=== PATIENT | male | born 1965 | race Caucasian/White ===

== ENCOUNTER 2016-10-24 14:16 | Outpatient (CLI) | payer MEDICARE ==
[2015-12-28 20:05] VITALS: BP 97/62
[2016-10-24 14:36] LABS: APPEARANCE,URINE Slightly Cloudy (CLEAR); COLOR,URINE Amber (YELLOW); OCCULT BLOOD,URINE 3+ (NEGATIVE)
== END 2016-10-24 14:17 ==
LOC: LAB 14:16
PROVIDERS: ATTEND Specialist
DX: R30.0 Dysuria (principal)
CPT/HCPCS: 81002; 87086

== ENCOUNTER 2016-11-10 10:46 | Outpatient (CLI) | payer MEDICARE ==
[2015-12-28 20:05] VITALS: BP 97/62
== END 2016-11-10 10:47 ==
LOC: LABRHC 10:46
PROVIDERS: ATTEND Physician Assistant
DX: R30.0 Dysuria (principal)
CPT/HCPCS: 87086

== ENCOUNTER 2016-11-24 15:25 | Outpatient (CLI) | payer MEDICARE ==
[2015-12-28 20:05] VITALS: BP 97/62
== END 2016-11-24 15:26 ==
LOC: LABRHC 15:25
PROVIDERS: ATTEND Family Medicine
DX: R31.9 Hematuria, unspecified (principal)
CPT/HCPCS: 87086